=== PATIENT | female | born 1990 | race African-American/Black ===

== ENCOUNTER 2018-11-19 14:25 | Inpatient (IN) | payer OTHER ==
[2018-11-19 19:41] VITALS: BMI 28.8
--- NOTE | 2018-11-19 20:16 | HP ---
CIWA Score Nausea/Vomitin Muscle Tremors: 3 Anxiety: 3 Agitation: 2 Paroxysmal Sweats: 1-Minimal Palms Moist Orientation: 0-Oriented Tacttile Disturbances: 0-None Auditory Disturbances: 0-None Visual Disturbances: 0-None Headache: 3-Moderate CIWA-Ar Total Score: 15 - Admission Criteria OASAS Guidelines: Admission for Medically Managed Detox: Requires at least one of the followin. CIWA greater than 12 2. Seizures within the past 24 hours 3. Delirium tremens within the past 24 hours 4. Hallucinations within the past 24 hours 5. Acute intervention needed for co occurring medical disorder 6. Acute intervention needed for co occurring psychiatric disorder 7. Severe withdrawal that cannot be handled at a lower level of care (continued vomiting, continued diarrhea, abnormal vital signs) requiring intravenous medication and/or fluids 8. Admission ROS [facility] Chief Complaint: Alcohol withdrawal symptoms Allergies/Adverse Reactions: Allergies Allergy/AdvReac Type Severity Reaction Status Date / Time No Known Allergies Allergy Verified 11/19/18 19:42 History of Present Illness: 28 years old female with years of alcohol and cocaine dependence is seeking admission to detox. Patient has been in previous detox at [facility] and insignificant period of sobriety. She has medical history of heart murmur, depression and anxiety. She denies suicide attempt and suicidal ideation at this time. Exam Limitations: No Limitations - Ebola screening Have you traveled outside of the country in the last 21 days: No (N) Have you had contact with anyone from an Ebola affected area: No Have you been sick,other than usual withdrawal symptoms: No Do you have a fever: No - Review of Systems Constitutional: Loss of Appetite, Malaise, Night Sweats, Changes in sleep, Unexplained wgt Loss EENT: reports: No Symptoms Reported Respiratory: reports: No Symptoms reported Cardiac: reports: No Symptoms Reported GI: reports: Diarrhea (x 3), Poor Appetite, Poor Fluid Intake, Abdominal cramping : reports: No Symptoms Reported Musculoskeletal: reports: No Symptoms Reported Integumentary: reports: Dryness Neuro: reports: Headache, Tremors Endocrine: reports: No Symptoms Reported Hematology: reports: No Symptoms Reported Psychiatric: reports: Mood/Affect Appropiate, Orientated x3, Anxious Other Systems: Reviewed and Negative Patient History - Patient Medical History Hx Anemia: No Hx Asthma: No Hx Chronic Obstructive Pulmonary Disease (COPD): No Hx Cancer: No Hx Cardiac Disorders: Yes (HEART MURMUR- NOT ON MEDICATION) Hx Congestive Heart Failure: No Hx Hypertension: No Hx Hypercholesterolemia: No Hx Pacemaker: No HX Cerebrovascular Accident: No Hx Seizures: No Hx Dementia: No Hx Diabetes: No Hx Gastrointestinal Disorders: No Hx Liver Disease: No Hx Genitourinary Disorders: No Hx Sexually Transmitted Disorders: No Hx Renal Disease (ESRD): No Hx Thyroid Disease: No Hx Human Immunodeficiency Virus (HIV): No (NEGATIVE 2018) Hx Hepatitis C: No Hx Depression: Yes (NOT ON MEDICATION) Hx Suicide Attempt: No (DENIES SUICIDE ATTEPT/ SUICIDE IDEATION AT THIS TIME) Hx Bipolar Disorder: No Hx Schizophrenia: No Other Medical History: ANXIETY - NOT ON MEDICATION - Patient Surgical History Past Surgical History: No - PPD History Previous Implant?: Yes Documented Results: Negative w/o proof Implanted On Prior [facility] Admission?: No PPD to be Administered?: Yes - Reproductive History Patient is a Female of Child Bearing Age (11 -55 yrs old): Yes Last Menstrual Period: 11/29/16 Patient : No - Smoking Cessation Smoking history: Current every day smoker Have you smoked in the past 12 months: Yes Aproximately how many cigarettes per day: 20 Hx Chewing Tobacco Use: No Initiated information on smoking cessation: Yes 'Breaking Loose' booklet given: 11/19/18 - Substance & Tx. History Hx Alcohol Use: Yes Hx Substance Use: Yes Substance Use Type: Alcohol, Cocaine - Substances Abused Alcohol Route: Oral Frequency: Daily Amount used: 1 PINT LIQUOR Age of first use: 25 Date of Last Use: 11/19/18 Cocaine Route: Smoking Frequency: Daily Amount used: $100 Age of first use: 25 Date of Last Use: 11/19/18 Family Disease History - Family Disease History Family History: Denies Family Disease History: Other: Grandparent (G/MOTHER - ALCOHOLIC), Father ( HEROINE &CRACK ADDICT, LIVER CA - ) Admission Physical Exam [facility] - Vital Signs Vital Signs: Vital Signs - 24 hr 11/19/18 19:33 Temperature 97.7 F Pulse Rate 94 H Respiratory 18 Rate Blood Pressure 119/72 - Physical General Appearance: Yes: Moderate Distress, Tremorous, Sweating, Anxious HEENTM: Yes: EOMI, Normal ENT Inspection, Normocephalic, Normal Voice, VICTOR M Respiratory: Yes: Lungs Clear, Normal Breath Sounds, No Respiratory Distress Neck: Yes: Supple Breast: Yes: Breast Exam Deferred Cardiology: Yes: Regular Rhythm, Regular Rate Abdominal: Yes: Normal Bowel Sounds Genitourinary: Yes: Within Normal Limits Back: Yes: Normal Inspection Musculoskeletal: Yes: Within Normal Limits Extremities: Yes: Tremors Neurological: Yes: bumboater II-XII NML intact, Alert, Normal Mood/Affect Integumentary: Yes: Warm Lymphatic: Yes: Within Normal Limits - Diagnostic (1) Alcohol dependence with uncomplicated withdrawal Current Visit: Yes Status: Chronic (2) Heart murmur Current Visit: Yes Status: Chronic (3) Depression Current Visit: Yes Status: Chronic Qualifiers: Depression Type: unspecified Qualified Code(s): F32.9 - Major depressive disorder, single episode, unspecified (4) Anxiety Current Visit: Yes Status: Chronic (5) Nicotine dependence Current Visit: Yes Status: Chronic Qualifiers: Nicotine product type: cigarettes Substance use status: uncomplicated Qualified Code(s): F17.210 - Nicotine dependence, cigarettes, uncomplicated Cleared for Admission [facility] - Detox or Rehab [facility] Level of Care: Medically Managed Detox Regimen/Protocol: Librium [facility] Breath Alcohol Content Breath Alcohol Content: 0.051 Urine Pregancy Test - Result Urine Test Results: Negative- NO Line Present Urine Drug Screen - Results Drug Screen Negative: No Urine Drug Screen Results: THC-Marijuana, SHAYNE-Cocaine, BZO-Benzodiazepines
[2018-11-19] MEDS ORDERED: guaiFENesin/D-METHORPHAN HB 10 ML UNIT-DOSE CUPS PO PRN (20:34)
[2018-11-19] MEDS ORDERED: ACETAMINOPHEN 325 MG TABLET (FP) PO PRN (20:34)
[2018-11-19] MEDS ORDERED: MAG HYDROX/AL HYDROX/SIMETH 30 ML UNIT-DOSE CUP PO PRN (20:34)
[2018-11-19] MEDS ORDERED: LOPERAMIDE HCL 2 MG CAPSULE PO PRN (20:34)
[2018-11-19] MEDS ORDERED: P-EPHED 60MG/TRIPROLIDI 2.5MG TABLET PO PRN (20:34)
[2018-11-19] MEDS ORDERED: MENTHOL/PHENOL 1 EACH UD MM PRN (20:34)
[2018-11-19] MEDS ORDERED: IBUPROFEN 400 MG TABLET (FP) PO PRN (20:34)
[2018-11-19] MEDS ORDERED: MAGNESIUM HYDROX 2400MG/30ML ORAL SUSPENSION 30 ML CUP PO PRN (20:34)
[2018-11-19] MEDS ORDERED: chlordiazePOXIDE HCL 25 MG CAPSULE PO PRN (20:34)
[2018-11-19] MEDS ORDERED: MAGNESIUM CITRATE 300 ML BOTTLE PO PRN (20:34)
[2018-11-19] MEDS ORDERED: MELATONIN 5 MG TABLETS PO PRN (22:00)
[2018-11-19] MEDS: chlordiazePOXIDE HCL 25 MG CAPSULE PO SCH (23:14)
[2018-11-19] MEDS: NICOTINE 21 MG/24 HOURS TOPICAL PATCH TD SCH (23:15)
[2018-11-19] MEDS: THIAMINE HCL 100 MG TABLET (FP) PO SCH (23:34)
[2018-11-20] MEDS: chlordiazePOXIDE HCL 25 MG CAPSULE PO SCH ×3 (05:51→22:19)
[2018-11-20] MEDS: PRENATAL VITAMINS W/ FOLIC ACID TABLET (FP) PO SCH (10:23)
[2018-11-20] MEDS: NICOTINE 21 MG/24 HOURS TOPICAL PATCH TD SCH (10:23)
[2018-11-20 11:16] LABS: ALBUMIN 3.3 g/dl (3.4-5.0); ALK PHOS 58 U/L (45-117); ANION GAP 7 MMOL/L (8-16); BILIRUBIN,TOTAL 0.3 mg/dL (0.2-1); BLOOD UREA NITROGEN 16 mg/dL (7-18); CALCIUM 8.5 mg/dL (8.5-10.1); CHLORIDE 105 mmol/L (98-107); CO2 26 mmol/L (21-32); CREATININE 0.8 mg/dL (0.55-1.3); GLUCOSE,RANDOM 84 mg/dL (74-106); POTASSIUM 4.2 mmol/L (3.5-5.1); SGOT/AST 18 U/L (15-37); SGPT/ALT 22 U/L (13-61); SODIUM 138 mmol/L (136-145); TOT PROT 6.9 g/dl (6.4-8.2)
[2018-11-20 11:26] LABS: HEMATOCRIT 37.1 % (32.4-45.2); HEMOGLOBIN 11.9 GM/dL (10.7-15.3); MCH 27.3 pg (25.7-33.7); MEAN CELL VOLUME 85.6 fl (80-96); MEAN PLT VOLUME 8.6 fl (7.5-11.1); PLATELET COUNT 211 K/MM3 (134-434); RBC 4.34 M/mm3 (3.60-5.2); RDW 13.8 % (11.6-15.6); WHITE BLOOD COUNT 4.3 K/mm3 (4.0-10.0)
[2018-11-20 11:51] LABS: URINE APPEARANCE CLEAR; URINE BILIRUBIN NEGATIVE (<2.0 mg/dL); URINE COLOR YELLOW; URINE GLUCOSE (UA) NEGATIVE (NEGATIVE); URINE KETONE NEGATIVE (NEGATIVE); URINE LEUK ESTERASE 3+ (NEGATIVE); URINE NITRITE NEGATIVE (NEGATIVE); URINE PROTEIN NEGATIVE (NEGATIVE); URINE UROBILINOGEN NEGATIVE mg/dL (0.2-1.0)
[2018-11-20 12:19] LABS: EPI CELLS RARE /HPF (FEW); URINE MUCUS RARE
[2018-11-20] MEDS ORDERED: chlordiazePOXIDE HCL 25 MG CAPSULE PO SCH ×3 (12:29→23:00)
[2018-11-20] MEDS ORDERED: chlordiazePOXIDE HCL 25 MG CAPSULE PO PRN (12:29)
--- NOTE | 2018-11-20 12:32 | PN ---
S CIWA - CIWA Score Nausea/Vomitin-No Nausea/No Vomiting Muscle Tremors: 4-Moderate,w/Arms Extend Anxiety: 4-Mod. Anxious/Guarded Agitation: 4-Moderately Restless Paroxysmal Sweats: 3 Orientation: 0-Oriented Tacttile Disturbances: 0-None Auditory Disturbances: 0-None Visual Disturbances: 0-None Headache: 0-None Present CIWA-Ar Total Score: 15 BHS Progress Note (SOAP) Subjective: nausea sweats shakes interrupted sleep body aches the librium is making my stomach turn Objective: 11/20/18 12:30 Vital Signs Temperature 97.9 F 11/20/18 10:24 Pulse Rate 79 11/20/18 10:24 Respiratory Rate 18 11/20/18 10:24 Blood Pressure 99/71 11/20/18 10:24 O2 Sat by Pulse Oximetry (%) Laboratory Tests 11/20/18 11/20/18 11/20/18 07:30 07:30 08:44 WBC 4.3 RBC 4.34 Hgb 11.9 Hct 37.1 MCV 85.6 MCH 27.3 MCHC 32.0 RDW 13.8 Plt Count 211 MPV 8.6 Sodium 138 Potassium 4.2 Chloride 105 Carbon Dioxide 26 Anion Gap 7 L BUN 16 Creatinine 0.8 Creat Clearance w eGFR > 60 Random Glucose 84 Calcium 8.5 Total Bilirubin 0.3 AST 18 ALT 22 Alkaline Phosphatase 58 Total Protein 6.9 Albumin 3.3 L Urine Color Yellow Urine Appearance Clear Urine pH 6.0 Ur Specific [place] 1.021 Urine Protein Negative Urine Glucose (UA) Negative Urine Ketones Negative Urine Blood Negative Urine Nitrite Negative Urine Bilirubin Negative Urine Urobilinogen Negative Ur Leukocyte Esterase 3+ H Urine WBC (Auto) 20 Urine RBC (Auto) 2 Ur Epithelial Cells Rare Urine Mucus Rare aaox3 ambulating no acute distress Assessment: 11/20/18 12:31 withdrawal sx Plan: continue detox and order place for pt to continue taking libirum pills whole increase fluids
--- NOTE | 2018-11-20 15:06 | CONSULT ---
[facility] Psychiatric Consult - Data Date of interview: 11/20/18 Admission source: [facility] Identifying data: Patient is a 28 year old single female, without children, unemployed, homeless, and supported by Food stamps. This is patient's first admission to detox. Patient admitted to for alcohol and benzodiazepine dependence. Substance Abuse History: Smoking Cessation. Smoking history: Current every day smoker. Have you smoked in the past 12 months: Yes. Aproximately how many cigarettes per day: 20. Hx Chewing Tobacco Use: No. Initiated information on smoking cessation: Yes. 'Breaking Loose' booklet given: 11/19/18. - Substance & Tx. History. Hx Alcohol Use: Yes. Hx Substance Use: Yes. Substance Use Type : Alcohol, Cocaine. - Substances Abused. Alcohol. Route: Oral. Frequency : Daily. Amount used: 1 PINT LIQUOR. Age of first use: 25. Date of Last Use: 11/19/18. Cocaine. Route: Smoking. Frequency: Daily. Amount used: $100. Age of first use: 25. Date of Last Use: 11/19/18 Medical History: h/o heart murmur Psychiatric History: Patient's reports onset disturbances of auditory hallucinations and mood unstability at the age of [age] but did not seek psychiatric care until the age of 25. She denies h/o psychiatric hospitalizations. Outpatient psychiatric care was provided at [facility], [place], operated by [facility] from [phone]. She than continued psychiatric treatment at the [facility] and subsequently was started on seroquel. Patient has also been tried on haldol, congentin, and depakote. She reports being diagnosed with schizophrenia at [facility], [place], operated by [facility] and states her diagnosis was changed to bipolar disorder while seeking treatment at the [facility]. Patient was incarcerated from 06/2018- 10/16/18. While incarcerated she reports taking seroquel 400mg BID, but has not accepted medication since her release from [facility]. Patient denies h/o suicide attempt. At present, she reports stable mood and denies psychotic symptoms. She denies h/o aggression. Patient requesting to restart seroquel. Physical/Sexual Abuse/Trauma History: denies. Mental Status Exam - Mental Status Exam Alert and Oriented to: Time, Place, Person Cognitive Function: Good Patient Appearance: Well Groomed Mood: Euthymic Affect: Appropriate Patient Behavior: Appropriate, Cooperative Speech Pattern: Clear, Appropriate Voice Loudness: Normal Thought Process: Intact, Goal Oriented Thought Disorder: Not Present Hallucinations: Denies Suicidal Ideation: Denies Homicidal Ideation: Denies Insight/Judgement: Poor Sleep: Poorly Appetite: Fair Muscle strength/Tone: Normal Gait/Station: Normal Psychiatric Findings - Problem List (Collins 1, 2,3) (1) Cocaine dependence Current Visit: Yes Status: Acute (2) Alcohol dependence with uncomplicated withdrawal Current Visit: Yes Status: Chronic (3) Nicotine dependence Current Visit: Yes Status: Chronic Qualifiers: Nicotine product type: cigarettes Substance use status: uncomplicated Qualified Code(s): F17.210 - Nicotine dependence, cigarettes, uncomplicated (4) Schizoaffective disorder Current Visit: Yes Status: Suspected - Initial Treatment Plan Initial Treatment Plan: Psychoeducation provided. Detoxification in progress. Will order Seroquel 50mg qhs. Pharmacy claims does not show a list of medications. Benefits and side effects discussed. Verbal consent given.
--- NOTE | 2018-11-20 15:46 | EKG ---
Test Reason : Blood Pressure : / mmHG Vent. Rate : 080 BPM Atrial Rate : 080 BPM P-R Int : 166 ms QRS Dur : 082 ms QT Int : 408 ms P-R-T Axes : 055 070 076 degrees QTc Int : 470 ms NORMAL SINUS RHYTHM NORMAL ECG NO PREVIOUS ECGS AVAILABLE Confirmed by RYAN GONZALEZ, SURINDER ([id number]) on 11/20/2018 3:46:06 PM Referred By: Medhat STEVEN Confirmed By:SURINDER DAVIS MD
[2018-11-20] MEDS: THIAMINE HCL 100 MG TABLET (FP) PO SCH (22:18)
[2018-11-20] MEDS: QUEtiapine FUMARATE 50 MG TABLET PO SCH (22:19)
[2018-11-21] MEDS: chlordiazePOXIDE HCL 25 MG CAPSULE PO SCH ×3 (06:09→17:34)
[2018-11-21] MEDS: PRENATAL VITAMINS W/ FOLIC ACID TABLET (FP) PO SCH (10:10)
[2018-11-21] MEDS: NICOTINE 21 MG/24 HOURS TOPICAL PATCH TD SCH (10:11)
--- NOTE | 2018-11-21 13:41 | PN ---
S CIWA - CIWA Score Nausea/Vomitin-Mild Nausea/No Vomiting Muscle Tremors: 3 Anxiety: 2 Agitation: 2 Paroxysmal Sweats: 1-Minimal Palms Moist Orientation: 0-Oriented Tacttile Disturbances: 0-None Auditory Disturbances: 0-None Visual Disturbances: 0-None Headache: 2-Mild CIWA-Ar Total Score: 11 S Progress Note (SOAP) Subjective: tremor sweat restlessness trouble sleep at night headaches Objective: 11/21/18 13:49 Vital Signs Temperature 98.1 F 11/21/18 09:38 Pulse Rate 89 11/21/18 09:38 Respiratory Rate 16 11/21/18 09:38 Blood Pressure 95/55 L 11/21/18 09:38 O2 Sat by Pulse Oximetry (%) Laboratory Last Values WBC 4.3 K/mm3 (4.0-10.0) 11/20/18 07:30 RBC 4.34 M/mm3 (3.60-5.2) 11/20/18 07:30 Hgb 11.9 GM/dL (10.7-15.3) 11/20/18 07:30 Hct 37.1 % (32.4-45.2) 11/20/18 07:30 MCV 85.6 fl (80-96) 11/20/18 07:30 MCH 27.3 pg (25.7-33.7) 11/20/18 07:30 MCHC 32.0 g/dl (32.0-36.0) 11/20/18 07:30 RDW 13.8 % (11.6-15.6) 11/20/18 07:30 Plt Count 211 K/MM3 (134-434) 11/20/18 07:30 MPV 8.6 fl (7.5-11.1) 11/20/18 07:30 Sodium 138 mmol/L (136-145) 11/20/18 07:30 Potassium 4.2 mmol/L (3.5-5.1) 11/20/18 07:30 Chloride 105 mmol/L (98-107) 11/20/18 07:30 Carbon Dioxide 26 mmol/L (21-32) 11/20/18 07:30 Anion Gap 7 MMOL/L (8-16) L 11/20/18 07:30 BUN 16 mg/dL (7-18) 11/20/18 07:30 Creatinine 0.8 mg/dL (0.55-1.3) 11/20/18 07:30 Creat Clearance w eGFR > 60 (>60) 11/20/18 07:30 Random Glucose 84 mg/dL (74-106) 11/20/18 07:30 Calcium 8.5 mg/dL (8.5-10.1) 11/20/18 07:30 Total Bilirubin 0.3 mg/dL (0.2-1) 11/20/18 07:30 AST 18 U/L (15-37) 11/20/18 07:30 ALT 22 U/L (13-61) 11/20/18 07:30 Alkaline Phosphatase 58 U/L (45-117) 11/20/18 07:30 Total Protein 6.9 g/dl (6.4-8.2) 11/20/18 07:30 Albumin 3.3 g/dl (3.4-5.0) L 11/20/18 07:30 Urine Color Yellow 11/20/18 08:44 Urine Appearance Clear 11/20/18 08:44 Urine pH 6.0 (5.0-8.0) 11/20/18 08:44 Ur Specific [place] 1.021 (1.010-1.035) 11/20/18 08:44 Urine Protein Negative (NEGATIVE) 11/20/18 08:44 Urine Glucose (UA) Negative (NEGATIVE) 11/20/18 08:44 Urine Ketones Negative (NEGATIVE) 11/20/18 08:44 Urine Blood Negative (NEGATIVE) 11/20/18 08:44 Urine Nitrite Negative (NEGATIVE) 11/20/18 08:44 Urine Bilirubin Negative (<2.0 mg/dL) 11/20/18 08:44 Urine Urobilinogen Negative mg/dL (0.2-1.0) 11/20/18 08:44 Ur Leukocyte Esterase 3+ (NEGATIVE) H 11/20/18 08:44 Urine WBC (Auto) 20 /hpf (3-5) 11/20/18 08:44 Urine RBC (Auto) 2 /hpf (0-3) 11/20/18 08:44 Ur Epithelial Cells Rare /HPF (FEW) 11/20/18 08:44 Urine Mucus Rare 11/20/18 08:44 RPR Titer Nonreactive (NONREACTIVE) 11/20/18 07:30 lab noted uti Assessment: 11/21/18 13:51 withdrawal sx uti Plan: continue detox bactrim ds bid
[2018-11-21] MEDS: SULFAMETHOXAZOLE/TRIMETHOPRIM 800MG/160MG D.S. TABLET PO SCH ×2 (15:27→22:08)
[2018-11-21] MEDS: chlordiazePOXIDE 5 MG CAPSULE PO SCH (22:08)
[2018-11-21] MEDS: THIAMINE HCL 100 MG TABLET (FP) PO SCH (22:09)
[2018-11-21] MEDS: QUEtiapine FUMARATE 50 MG TABLET PO SCH (22:09)
[2018-11-21] MEDS ORDERED: chlordiazePOXIDE 5 MG CAPSULE PO SCH (23:00)
[2018-11-22] MEDS: chlordiazePOXIDE 5 MG CAPSULE PO SCH ×2 (06:01→10:18)
[2018-11-22] MEDS: SULFAMETHOXAZOLE/TRIMETHOPRIM 800MG/160MG D.S. TABLET PO SCH (10:18)
[2018-11-22] MEDS: PRENATAL VITAMINS W/ FOLIC ACID TABLET (FP) PO SCH (10:18)
[2018-11-22] MEDS: NICOTINE 21 MG/24 HOURS TOPICAL PATCH TD SCH (10:19)
--- NOTE | 2018-11-22 11:31 | PN ---
BHS Progress Note (SOAP) Subjective: anxiety feeling better Objective: 11/22/18 11:30 Vital Signs Temperature 98.6 F 11/22/18 09:12 Pulse Rate 82 11/22/18 09:12 Respiratory Rate 18 11/22/18 09:12 Blood Pressure 126/69 11/22/18 09:12 O2 Sat by Pulse Oximetry (%) aaox3 ambulating no acute distress Assessment: 11/22/18 11:31 withdrawal sx Plan: continue detox increase fluids d/c in am
[2018-11-22 13:16] VITALS: BP 118/66; PULSE 84; TEMP 97.7
[2018-11-22] MEDS ORDERED: chlordiazePOXIDE HCL 10 MG CAPSULE PO SCH ×2 (23:00)
--- NOTE | 2019-01-25 11:43 | EKG ---
Test Reason : Blood Pressure : / mmHG Vent. Rate : 078 BPM Atrial Rate : 078 BPM P-R Int : 174 ms QRS Dur : 080 ms QT Int : 388 ms P-R-T Axes : 048 062 070 degrees QTc Int : 442 ms NORMAL SINUS RHYTHM NORMAL ECG WHEN COMPARED WITH ECG OF 19-NOV-2018 22:59, NO SIGNIFICANT CHANGE WAS FOUND Confirmed by Wayne Joshi MD ([id number]) on 01/25/2019 11:42:33 AM Referred By: Confirmed By:Wayne Joshi MD
== END 2018-11-22 15:14 | disposition home or self-care (01) | DRG 774 ==
LOC: YASAS 14:25 → Y6N 21:23
PROC: HZ2ZZZZ Detoxification Services for Substance Abuse Treatment (ICD-10-PCS; principal; 2018-11-19)
DX: F10.230 Alcohol dependence with withdrawal, uncomplicated (principal); F14.20 Cocaine dependence, uncomplicated; F17.210 Nicotine dependence, cigarettes, uncomplicated; F25.9 Schizoaffective disorder, unspecified; F32.9 Major depressive disorder, single episode, unspecified; F41.9 Anxiety disorder, unspecified; N39.0 Urinary tract infection, site not specified; R01.1 Cardiac murmur, unspecified
CPT/HCPCS: 36415; 80053; 81003; 81015; 85027; 86593; 93005; 93010

== ENCOUNTER 2021-01-11 12:54 | Inpatient (IN) | payer OTHER ==
[2021-01-11 14:03] VITALS: BMI 36.9
[2021-01-11] MEDS ORDERED: ONDANSETRON *ODT* 4 MG TABLET SL PRN (14:15)
[2021-01-11] MEDS ORDERED: ACETAMINOPHEN 325 MG TABLET (FP) PO PRN (14:15)
[2021-01-11] MEDS ORDERED: MAG HYDROX/AL HYDROX/SIMETH 30 ML UNIT-DOSE CUP PO PRN (14:15)
[2021-01-11] MEDS ORDERED: chlordiazePOXIDE HCL 25 MG CAPSULE PO PRN (14:15)
[2021-01-11] MEDS ORDERED: METHOCARBAMOL 500 MG TABLET PO PRN (14:15)
[2021-01-11] MEDS ORDERED: IBUPROFEN 400 MG TABLET (FP) PO PRN (14:15)
[2021-01-11] MEDS ORDERED: MAGNESIUM CITRATE 300 ML BOTTLE PO PRN (14:15)
[2021-01-11] MEDS ORDERED: MENTHOL/PHENOL 1 EACH UD MM PRN (14:15)
[2021-01-11] MEDS ORDERED: BISMUTH SUBSALICYLATE 524 MG/30 ML UD PO PRN (14:15)
[2021-01-11] MEDS ORDERED: MAGNESIUM HYDROX 2400MG/30ML ORAL SUSPENSION 30 ML CUP PO PRN (14:15)
[2021-01-11] MEDS ORDERED: NICOTINE POLACRILEX 2 MG GUM BUC PRN (14:15)
[2021-01-11] MEDS: ACETAMINOPHEN 325 MG TABLET (FP) PO PRN (15:57)
[2021-01-11] MEDS: NICOTINE 7 MG/24 HOURS TOPICAL PATCH TD SCH (15:57)
[2021-01-11] MEDS: PRENATAL VITAMINS W/ FOLIC ACID TABLET (FP) PO SCH (15:57)
[2021-01-11] MEDS: chlordiazePOXIDE HCL 25 MG CAPSULE PO SCH ×2 (17:44→22:35)
[2021-01-11] MEDS: hydrOXYzine PAMOATE 25 MG CAPSULE (FP) PO SCH ×2 (17:46→22:35)
[2021-01-11 17:58] LABS: HEMATOCRIT 39.4 % (32.4-45.2); HEMOGLOBIN 13.1 GM/dL (10.7-15.3); MCH 28.2 pg (25.7-33.7); MCHC 33.1 g/dl (32.0-36.0); MEAN PLT VOLUME 8.7 fl (7.5-11.1); PLATELET COUNT 276 K/MM3 (134-434); RBC 4.64 M/mm3 (3.60-5.2); WHITE BLOOD COUNT 7.5 K/mm3 (4.0-10.0)
[2021-01-11 18:05] LABS: POTASSIUM 4.3 mmol/L (3.5-5.1)
[2021-01-11 18:23] LABS: CALCIUM 9.2 mg/dL (8.5-10.1)
[2021-01-11 18:24] LABS: ALBUMIN 3.7 g/dl (3.4-5.0); BLOOD UREA NITROGEN 12.8 mg/dL (7-18)
[2021-01-11 18:27] LABS: CREATININE 0.8 mg/dL (0.55-1.3)
[2021-01-11 18:28] LABS: BILIRUBIN,TOTAL 0.5 mg/dL (0.2-1)
[2021-01-11] MEDS: MELATONIN 5 MG TABLETS PO SCH (22:34)
[2021-01-11] MEDS: THIAMINE HCL 100 MG TABLET (FP) PO SCH (22:35)
[2021-01-12] MEDS: hydrOXYzine PAMOATE 25 MG CAPSULE (FP) PO SCH ×5 (07:24→22:34)
[2021-01-12] MEDS: chlordiazePOXIDE HCL 25 MG CAPSULE PO SCH ×4 (07:24→22:34)
[2021-01-12] MEDS: NICOTINE 7 MG/24 HOURS TOPICAL PATCH TD SCH (10:30)
[2021-01-12] MEDS: PRENATAL VITAMINS W/ FOLIC ACID TABLET (FP) PO SCH (10:30)
[2021-01-12] MEDS: ACETAMINOPHEN 325 MG TABLET (FP) PO PRN (10:33)
[2021-01-12] MEDS ORDERED: PENICILLIN G BENZATHINE 2,400,000 UNIT/4 ML PFS IM ONE (13:21)
[2021-01-12] MEDS: MELATONIN 5 MG TABLETS PO SCH (22:33)
[2021-01-12] MEDS: QUEtiapine FUMARATE 50 MG TABLET PO SCH (22:34)
[2021-01-12] MEDS: THIAMINE HCL 100 MG TABLET (FP) PO SCH (22:34)
[2021-01-13] MEDS: hydrOXYzine PAMOATE 25 MG CAPSULE (FP) PO SCH ×5 (06:42→23:01)
[2021-01-13] MEDS: chlordiazePOXIDE HCL 25 MG CAPSULE PO SCH ×4 (06:43→23:22)
[2021-01-13] MEDS: PRENATAL VITAMINS W/ FOLIC ACID TABLET (FP) PO SCH (10:36)
[2021-01-13] MEDS: NICOTINE 7 MG/24 HOURS TOPICAL PATCH TD SCH (10:37)
[2021-01-13] MEDS: QUEtiapine FUMARATE 50 MG TABLET PO SCH (23:01)
[2021-01-13] MEDS: THIAMINE HCL 100 MG TABLET (FP) PO SCH (23:01)
[2021-01-13] MEDS: MELATONIN 5 MG TABLETS PO SCH (23:01)
[2021-01-14] MEDS ORDERED: chlordiazePOXIDE HCL 10 MG CAPSULE PO PRN
[2021-01-14] MEDS: chlordiazePOXIDE HCL 10 MG CAPSULE PO SCH ×3 (07:07→17:51)
[2021-01-14] MEDS: hydrOXYzine PAMOATE 25 MG CAPSULE (FP) PO SCH ×2 (07:07→10:05)
[2021-01-14] MEDS: PRENATAL VITAMINS W/ FOLIC ACID TABLET (FP) PO SCH (10:05)
[2021-01-14] MEDS: NICOTINE 7 MG/24 HOURS TOPICAL PATCH TD SCH (10:05)
[2021-01-14] MEDS ORDERED: hydrOXYzine PAMOATE 25 MG CAPSULE (FP) PO PRN (13:59)
[2021-01-14] MEDS ORDERED: chlordiazePOXIDE HCL 10 MG CAPSULE PO SCH (18:06)
[2021-01-14] MEDS: QUEtiapine FUMARATE 50 MG TABLET PO SCH (22:39)
[2021-01-14] MEDS: MELATONIN 5 MG TABLETS PO SCH (22:39)
[2021-01-14] MEDS: THIAMINE HCL 100 MG TABLET (FP) PO SCH (22:39)
[2021-01-15] MEDS ORDERED: chlordiazePOXIDE HCL 10 MG CAPSULE PO SCH (05:00)
[2021-01-15] MEDS: chlordiazePOXIDE HCL 10 MG CAPSULE PO SCH ×2 (06:39→17:57)
[2021-01-15] MEDS: PRENATAL VITAMINS W/ FOLIC ACID TABLET (FP) PO SCH (10:28)
[2021-01-15] MEDS: NICOTINE 7 MG/24 HOURS TOPICAL PATCH TD SCH (10:28)
[2021-01-15] MEDS: MELATONIN 5 MG TABLETS PO SCH (21:45)
[2021-01-15] MEDS: QUEtiapine FUMARATE 50 MG TABLET PO SCH (21:45)
[2021-01-15] MEDS: THIAMINE HCL 100 MG TABLET (FP) PO SCH (21:45)
[2021-01-16] MEDS ORDERED: chlordiazePOXIDE HCL 10 MG CAPSULE PO ONE ×2 (05:00)
[2021-01-16] MEDS: PRENATAL VITAMINS W/ FOLIC ACID TABLET (FP) PO SCH (09:03)
[2021-01-16] MEDS: NICOTINE 7 MG/24 HOURS TOPICAL PATCH TD SCH (09:04)
[2021-01-16 09:24] VITALS: BP 128/68; PULSE 73; TEMP 97.3
== END 2021-01-16 09:23 | disposition home or self-care (01) | DRG 774 ==
LOC: YASAS 12:54 → Y3N 14:51
PROVIDERS: ADMIT Allergy & Immunology; ATTEND Allergy & Immunology
PROC: HZ2ZZZZ Detoxification Services for Substance Abuse Treatment (ICD-10-PCS; principal; 2021-01-11)
DX: F10.230 Alcohol dependence with withdrawal, uncomplicated (principal); F14.20 Cocaine dependence, uncomplicated; F12.20 Cannabis dependence, uncomplicated; F17.210 Nicotine dependence, cigarettes, uncomplicated; F19.282 Other psychoactive substance dependence with psychoactive substance-induced sleep disorder; F19.24 Other psychoactive substance dependence with psychoactive substance-induced mood disorder; F31.9 Bipolar disorder, unspecified; F25.9 Schizoaffective disorder, unspecified; F41.1 Generalized anxiety disorder; F43.10 Post-traumatic stress disorder, unspecified; A53.9 Syphilis, unspecified; E11.9 Type 2 diabetes mellitus without complications; R01.1 Cardiac murmur, unspecified; E66.9 Obesity, unspecified; Z68.36 Body mass index [BMI] 36.0-36.9, adult; Z86.59 Personal history of other mental and behavioral disorders; Z91.410 Personal history of adult physical and sexual abuse
CPT/HCPCS: 36415; 80053; 82962; 85027; 86593; 86780; C9803; Q0162; U0003